=== PATIENT | female | born 1970 | race American Indian/Alaskan Native ===

== ENCOUNTER 2018-11-15 14:26 | Emergency (ER) | payer OTHER ==
--- NOTE | 2018-11-15 15:22 | Event Note ---
ED Screening Note Date of service: 11/15/18 Time: 15:13 ED Screening Note: This is a 48 y.o. F. that presents to the ER with draining abscess of left breast. She went to [place] 1 week ago and told she had an abscess which started draining while in the ER. They started patient on antibiotics and referral to breast clinic. She was unable to follow up because she doesn't live [facility] [place]. She is taking antibiotics bid for 7 days. This initial assessment/diagnostic orders/clinical plan/treatment(s) is/are subject to change based on patients health status, clinical progression and re- assessment by fellow clinical providers in the ED. Further treatment and workup at subsequent clinical providers discretion. Patient/guardian urged not to elope from the ED as their condition may be serious if not clinically assessed and managed. Initial orders include: ACC for further evaluation.
--- NOTE | 2018-11-15 16:17 | Emergency Department Report ---
ED General Adult HPI - General Chief complaint: Chest Pain Stated complaint: LT BREAST PAIN Time Seen by Provider: 11/15/18 15:12 Source: patient Mode of arrival: Ambulatory Limitations: No Limitations - History of Present Illness Initial comments: Patient is a 48-year-old [place] female who is presenting with purulent drainage from the left medial breast. Patient states approximately a week ago she was seen at [facility] and was started on doxycycline. Patient states that her pain is minimal however the abscess is continuing to drain. Patient states she was not seen by her surgeon A gradient because she does not live in [facility]. Patient here to have the wound evaluated. Patient states she was given very little information about what may be causing the abscess. She denies any fevers chills nausea vomiting since this time. - Related Data Previous Rx's Medication Instructions Recorded Last Taken Type Clindamycin [Clindamycin CAP] 300 mg PO Q8H #21 cap 11/15/18 Unknown Rx Allergies Allergy/AdvReac Type Severity Reaction Status Date / Time povidone-iodine Allergy Unknown Verified 11/15/18 15:00 [From Betadine] soap [From Betadine] Allergy Unknown Verified 11/15/18 15:00 sumatriptan [From Imitrex] Allergy Unknown Verified 11/15/18 15:00 ED Review of Systems ROS: Stated complaint: LT BREAST PAIN Other details as noted in HPI Comment: All other systems reviewed and negative ED Past Medical Hx - Past Medical History Previous Medical History?: No - Surgical History Past Surgical History?: No - Social History Smoking Status: Never Smoker Substance Use Type: None - Medications Home Medications: Home Medications Medication Instructions Recorded Confirmed Last Taken Type Clindamycin [Clindamycin CAP] 300 mg PO Q8H #21 cap 11/15/18 Unknown Rx ED Physical Exam - General Limitations: No Limitations General appearance: alert, in no apparent distress - Head Head exam: Present: atraumatic, normocephalic - Eye Eye exam: Present: normal appearance, PERRL, EOMI - ENT ENT exam: Present: mucous membranes moist - Neck Neck exam: Present: normal inspection - Respiratory Respiratory exam: Present: normal lung sounds bilaterally, chest wall tenderness. Absent: respiratory distress, wheezes, rales, rhonchi - Cardiovascular Cardiovascular Exam: Present: regular rate, normal rhythm. Absent: systolic murmur, diastolic murmur, rubs, gallop - GI/Abdominal GI/Abdominal exam: Present: soft, normal bowel sounds - Extremities Exam Extremities exam: Present: normal inspection - Back Exam Back exam: Present: normal inspection - Neurological Exam Neurological exam: Present: alert, oriented X3 - Psychiatric Psychiatric exam: Present: normal affect, normal mood - Skin Skin exam: Present: warm, dry, intact, normal color. Absent: rash - Expanded Skin Exam Expanded Type of lesion: Present: abscess 1 - Patient has a silver dollar area of erythema with central fluctuance. There are 2 small punctate areas that are draining a purulent material ED Course Vital Signs 11/15/18 14:55 Temperature 98.5 F Pulse Rate 75 Respiratory 18 Rate Blood Pressure 136/79 O2 Sat by Pulse 99 Oximetry ED Medical Decision Making - Medical Decision Making Had a long conversation with the patient regarding what causes skin infections Y breast tissue does pose some challenges from the emergency department in diagnosing the root cause of her condition. I am not comfortable doing an incision and drainage of the patient's wound. It is unknown whether there is associated tumor in this area. Patient be given follow-up with Dr. Rowell with the breast clinic. Patient also will be double covered with Augmentin. Patient's continue doing warm compresses. Critical care attestation.: If time is entered above; I have spent that time in minutes in the direct care of this critically ill patient, excluding procedure time. ED Disposition Clinical Impression: Breast abscess of female Disposition: - TO HOME OR SELFCARE Is pt being admited?: No Does the pt Need Aspirin: No Condition: Stable Instructions: Breast Abscess Drainage (ED), Abscess (ED) Referrals: ABRAHAM ROWELL MD [Staff Physician] - 3-5 Days Time of Disposition: 16:19
[2018-11-15 16:26] VITALS: BP 127/85
== END 2018-11-15 16:27 | disposition home or self-care (01) ==
LOC: ED 14:26
DX: N61.1 Abscess of the breast and nipple (principal); Z91.041 Radiographic dye allergy status; Z91.048 Other nonmedicinal substance allergy status; Z88.1 Allergy status to other antibiotic agents